=== PATIENT | female | born 1990 | race African-American/Black ===

== ENCOUNTER 2016-09-15 14:19 | Emergency (ER) | payer OTHER ==
[~2016-09-15] VITALS: Ht 170.2 cm; Wt 74.8 kg
[~2016-09-15 14:19] MED LIST: ACETAMINOPHEN650 M5 PO; AUGMENTIN 875875 MG PO; AZITHROMYCIN 2250 MG PO; CEFTIN 250 MG250 MG PO; CIPROFLOXACIN500 M1 PO; COLACE 100 MG100 MG PO; DIPHENHYDRAMINE25 M3 PO; DROXIA200 MG PO; FOLIC ACID 1 MG1 MG PO; FOLIC ACID1 MG PO; HYDREA 500 MG500 M1 PO; IBUPROFEN 600600 M1 PO; LAXATIVE PEG 3317 GM PO; LEVAQUIN 500 M500 M2 PO; MS CONTIN 30 MG30 M1 PO; MS CONTIN15 MG; MS CONTIN15 MG PO; MULTIVITAMINS1 EAC7; ONDANSETRON HCL4 M2 PO; OXYCODONE HCL15 MG PO; OXYCONTIN20 M1 PO; PERCOCET 10-321 EAC1 PO; PERCOCET 10-321 EACH PO; PERCOCET 10-651 EACH PO; PERCOCET 5-3251 EACH PO; PHENERGAN 25 MG25 M1 PO; PHENERGAN 25 MG25 MG PO; PHENERGAN50 MG RC; STOOL SOFTENER100 MG PO; TYLENOL325 MG PO; ZOFRAN ODT4 MG PO
[2016-09-15] MEDS ORDERED: PERCOCET 10-321 EACH PO (14:32)
== END 2016-09-15 15:05 | disposition home or self-care (01) ==
LOC: ER 14:19
DX: Z76.0 Encounter for issue of repeat prescription (principal)

== ENCOUNTER 2016-12-05 20:15 | Emergency (ER) | payer OTHER ==
[~2016-12-05] VITALS: Ht 170.2 cm; Wt 74.8 kg
[2016-12-05 20:42] LABS: HEMOGLOBIN 8.9 gm/dL (12.0-15.0); MCH 33.9 pg (26.0-34.0); MCHC 34.3 g/dL (28.0-37.0); PLATELET COUNT 490 thou/uL (150-400); RBC 2.62 mil/uL (4.20-5.00); RDW 20.4 % (10.5-14.5); WBC 10.1 thou/uL (4.0-11.0)
[2016-12-05 20:43] LABS: MANUAL DIFF YES
[2016-12-05 20:50] LABS: CREATININE 0.7 mg/dL (0.6-1.3); POTASSIUM 3.9 mmol/L (3.5-5.1)
[2016-12-05 20:54] LABS: ALBUMIN 4.3 g/dL (3.4-5.0); TOTAL BILIRUBIN 1.4 mg/dL (<0.1-1.0); TOTAL PROTEIN 7.3 g/dL (6.4-8.2)
[2016-12-05 21:13] LABS: ABSOLUTE NEUTROPHILS 6.3 thou/uL (1.4-8.2)
[2016-12-05 21:15] LABS: POIKILOCYTOSIS 1+; TARGET CELLS FEW
[2016-12-05] MEDS ORDERED: PERCOCET 5-3251 EACH PO (21:22)
== END 2016-12-05 22:16 | disposition home or self-care (01) ==
LOC: ER 20:15
PROVIDERS: Physician Assistant
DX: D57.00 Hb-SS disease with crisis, unspecified (principal)

== ENCOUNTER 2017-03-04 17:05 | Emergency (ER) | payer OTHER ==
[~2017-03-04] VITALS: Ht 170.2 cm; Wt 73.5 kg
[2017-03-04 17:28] LABS: URINE BILIRUBIN NEGATIVE (Negative); URINE BLOOD TRACE (Negative); URINE COLOR YELLOW; URINE GLUCOSE-RANDOM* NEGATIVE (Negative); URINE KETONES NEGATIVE (Negative); URINE NITRITE NEGATIVE (Negative); URINE PROTEIN (DIPSTICK) TRACE (Negative); URINE UROBILINOGEN 0.2 E.U./dl (0.2-1.0)
[2017-03-04 18:32] LABS: ABSOLUTE NEUTROPHILS 7.8 thou/uL (1.4-8.2); BASOPHILS 0.7 % (0.0-2.0); EOSINOPHILS 0.5 % (0.0-3.0); HEMATOCRIT 28.5 % (37.0-47.0); LYMPHOCYTES 20.7 % (24.0-44.0); MCH 35.6 pg (26.0-34.0); MCHC 35.2 g/dL (28.0-37.0); MCV 101.3 fL (80.0-100.0); MONOCYTES 11.4 % (1.0-8.0); PLATELET COUNT 540 thou/uL (150-400); POLYS 66.7 % (36.0-66.0); RBC 2.82 mil/uL (4.20-5.00); RDW 16.8 % (10.5-14.5); WBC 11.8 thou/uL (4.0-11.0)
[2017-03-04 18:33] LABS: CALCIUM 8.8 mg/dL (8.5-10.1); CREATININE 0.6 mg/dL (0.6-1.0); MANUAL DIFF NO; POTASSIUM 3.6 mmol/L (3.5-5.1)
[2017-03-04 18:35] LABS: ABSOLUTE RETIC COUNT 0.2909 10^6/uL; OBSERVED RETIC COUNT 10.29 % (0.6-2.6)
[2017-03-04 18:38] LABS: ALBUMIN 4.6 g/dL (3.4-5.0); TOTAL BILIRUBIN 1.3 mg/dL (<0.1-1.0)
[2017-03-04] MEDS ORDERED: PERCOCET 5-3251 EACH PO (19:49)
== END 2017-03-04 19:50 | disposition home or self-care (01) ==
LOC: ER 17:05
PROVIDERS: Physician Assistant
DX: D57.00 Hb-SS disease with crisis, unspecified (principal); F12.10 Cannabis abuse, uncomplicated

== ENCOUNTER 2017-11-05 03:58 | Emergency (ER) | payer OTHER ==
[~2017-11-05] VITALS: Ht 170.2 cm; Wt 68.0 kg
[2017-11-05 05:51] LABS: ABSOLUTE NEUTROPHILS 6.3 thou/uL (1.4-8.2); BASOPHILS 0.7 % (0.0-2.0); EOSINOPHILS 1.1 % (0.0-3.0); HEMOGLOBIN 7.9 gm/dL (12.0-15.0); LYMPHOCYTES 36.1 % (24.0-44.0); MCH 35.8 pg (26.0-34.0); MCHC 34.3 g/dL (28.0-37.0); MCV 104.4 fL (80.0-100.0); MONOCYTES 11.6 % (1.0-8.0); PLATELET COUNT 735 thou/uL (150-400); POLYS 50.5 % (36.0-66.0); RDW 19.8 % (10.5-14.5); WBC 12.5 thou/uL (4.0-11.0)
[2017-11-05 06:02] LABS: CALCIUM 9.2 mg/dL (8.5-10.1); CREATININE 0.7 mg/dL (0.6-1.0); POTASSIUM 3.2 mmol/L (3.5-5.1)
[2017-11-05 07:48] VITALS: BP 117/64
== END 2017-11-05 07:33 | disposition home or self-care (01) ==
LOC: ER 03:58
PROVIDERS: Emergency Medicine
DX: D57.00 Hb-SS disease with crisis, unspecified (principal); E87.6 Hypokalemia

== ENCOUNTER 2019-03-01 02:03 | Emergency (ER) | payer OTHER ==
[~2019-03-01] VITALS: Ht 170.2 cm; Wt 77.1 kg
[2019-03-01 03:05] LABS: URINE BILIRUBIN NEGATIVE (Negative); URINE BLOOD TRACE (Negative); URINE CLARITY CLEAR; URINE COLOR YELLOW; URINE GLUCOSE-RANDOM* NEGATIVE (Negative); URINE KETONES NEGATIVE (Negative); URINE LEUKOCYTES-REFLEX NEGATIVE (Negative); URINE NITRITE-REFLEX NEGATIVE (Negative); URINE PROTEIN (DIPSTICK) TRACE (Negative); URINE SPECIFIC GRAVITY 1.015 (1.005-1.035); URINE UROBILINOGEN 0.2 E.U./dl (0.2-1.0)
[2019-03-01] MEDS ORDERED: PROMS25 WY RECTAL (03:47)
[2019-03-01 04:19] VITALS: BP 108/72
== END 2019-03-01 04:20 | disposition home or self-care (01) ==
LOC: ER 02:03
PROVIDERS: Emergency Medicine
DX: D57.00 Hb-SS disease with crisis, unspecified (principal)

== ENCOUNTER 2019-03-27 18:41 | Inpatient (IN) | payer OTHER ==
[~2019-03-27] VITALS: Ht 170.2 cm; Wt 84.2 kg
[~2019-03-27 18:41] MED LIST changes: +ALPRAZOLAM 0.50.5 M1 PO; +CLEOCIN HCL150 MG PO; +CYMBALTA30 MG PO; +MS CONTIN 60 MG60 M1 PO; +OXYCODONE HCL30 MG PO; +PROMS25 WY RECTAL; +TRAZODONE HCL50 MG PO
[2019-03-27 18:56] VITALS: BP 145/81
[2019-03-27 21:30] LABS: HEMATOCRIT 25.8 % (37.0-47.0); HEMOGLOBIN 8.8 gm/dL (12.0-15.0); MCH 33.8 pg (26.0-34.0); MCHC 34.1 g/dL (28.0-37.0); MCV 99.2 fL (80.0-100.0); PLATELET COUNT 601 thou/uL (150-400); RDW 21.1 % (10.5-14.5); WBC 31.4 thou/uL (4.0-11.0)
[2019-03-27 21:34] LABS: ABSOLUTE RETIC COUNT 0.2538 10^6/uL; OBSERVED RETIC COUNT 9.71 % (0.6-2.6)
[2019-03-27 21:40] LABS: CALCIUM 8.6 mg/dL (8.5-10.1); CREATININE 0.6 mg/dL (0.6-1.0); POTASSIUM 3.9 mmol/L (3.5-5.1)
[2019-03-27 21:45] LABS: ALBUMIN 4.1 g/dL (3.4-5.0); TOTAL BILIRUBIN 0.9 mg/dL (<0.1-1.0); TOTAL PROTEIN 7.8 g/dL (6.4-8.2)
--- NOTE | 2019-03-27 21:46 | NUR ---
XRAY AT BEDSIDE
[2019-03-27 21:54] LABS: METAMYELOCYTES 1 %
[2019-03-27 21:55] LABS: ANISOCYTOSIS 2+; POLYCHROMASIA SLIGHT; TARGET CELLS OCCASIONAL
--- NOTE | 2019-03-27 22:36 | NUR ---
PATIENT RESTING MORE COMFORTABLY. STATES THE SECOND DOSE OF PAIN MEDS DIDN'T HELP, HOWEVER, SHE IS ABLE TO SPEAK MORE CLEARLY AND APPEARS TO BE RESTING
[2019-03-27 23:49] VITALS: BP 105/71
[2019-03-28] VITALS (7 sets, daily range): BP systolic 92–182; BP diastolic 54–87
--- NOTE | 2019-03-28 00:03 | NUR ---
REPORT TO INPATIENT NURSEFALLON
--- NOTE | 2019-03-28 02:46 | NUR ---
PT ARRIVED FROM ER VIA CART WITH [employer] SALESMAN. PLACED IN ROOM 360. ADMISSION ASSESSMENTS COMPLETED. PT RATING PAIN "35" OUT OF TEN. PT STATED HER BACK, CHEST AND RIGHT LEG WERE THE SITES FOR PAIN. USING FACES PAIN SCALE, THIS RN RATED PAIN AT 5/10. PT ALSO FREQUENTLY FALLING ASLEEP DURING ADMISSION QUESTTIONS. UPON APPROACH TO GIVE LOVENOX DOSE PT REFUSED. "NO, I'VE READ UP ON LOVENOX. MAYBE IF I WAS HERE FOR A WEEK I'D TAKE IT. I JUST NEED SOME PAIN MEDICATION." DID INFORM PROVIDER OF PTS REFUSAL TO TAKE LOVENOX. PT ALSO HAD PREVIOUSLY REFUSED SCDS. EDUCATION WAS ATTEMPTED IN REGARDS TO THE LOVENOX AND SCD BUT PT STILL REFUSED BOTH. CONTINUE TO MONITOR.
[2019-03-28 05:30] LABS: HEMATOCRIT 22.4 % (37.0-47.0); HEMOGLOBIN 7.5 gm/dL (12.0-15.0); MCH 33.1 pg (26.0-34.0); MCHC 33.6 g/dL (28.0-37.0); MCV 98.5 fL (80.0-100.0); RBC 2.27 mil/uL (4.20-5.00); RDW 20.5 % (10.5-14.5); WBC 21.4 thou/uL (4.0-11.0)
[2019-03-28 16:11] LABS: ABSOLUTE RETIC COUNT 0.2149 10^6/uL; HEMATOCRIT 24.2 % (37.0-47.0); HEMOGLOBIN 8.3 gm/dL (12.0-15.0); MCHC 34.4 g/dL (28.0-37.0); OBSERVED RETIC COUNT 8.78 % (0.6-2.6); RBC 2.45 mil/uL (4.20-5.00); RDW 20.3 % (10.5-14.5); WBC 19.5 thou/uL (4.0-11.0)
--- NOTE | 2019-03-28 19:33 | NUR ---
care of pt assumed this am @ ~0700. pt noted to be resting quietly and comfortably when viewed from the door, but once entered the room and pt heard the staff make noise she would awake and co of severe 10/10 generalized pain and request pain medication. pt often would ask for pain medication before the rn was able to given it, such that medications and times given were placed on her white board so that she and her mother could keep track. pt noted to be non compliant w/ tx requested/ offered (refused vs to be take twice today, pt refused to take her lovenox sq injection and pt refused to eat her meals today). pt shown the white board w/ the pain scale faces/numbers and informed that a 10 is a crying face and she always claimed her pain to be a 10/10 and stated that she never received any pain relief from all pain medications given today. pt's mother stated that the pt has also been seen at for similar health problems.
--- NOTE | 2019-03-28 22:02 | NUR ---
APPROACHED PT FOR INITIAL ASSESSMENT. UPON STANDING IN THE DOORWAY PT WAS PHYSICALLY STILL AND QUIET. THIS RN APPROACHED THE PT BEGAN TO SHAKE/SHIVER. PT STATED SHE WAS INTIALLY CALM AND STILL, WAS NOT CRYING OR STUTTERING BECAUSE SHE WAS "PRAYING." PTS SPEECH WAS VERY BROKEN, WITH SO MUCH STUTTERING THAT HE COULDN'T EVEN SPEAK A FULL WORD. PT BECAME TEARFUL. DID PERFORM ASSESSMENT, LISTENED TO POSTERIOR LUNG SITES AND PT EVEN 'MOANED' WITH EVEN VERY LIGHT TOUCH OF THE STETHESCOPE TO HER BACK. DIALUDID 2MG IV GIVEN. DID WRITE TIME OF NEXT DOSE OF DILAUDID ON THE PTS INFORMATION BOARD. ENCOURAGED TO CALL AT THAT TIME. ALSO INFORMED PT THAT THIS RN WOULD MAKE VERY ATTEMPT TO SHOW UP AT THAT TIME TO ASSESS THE NEED FOR THE NEXT DOSE IF NEEDED. ALSO DID INFORM PT THAT SHE WOULD NOT BE AWAKENED AND ASKED IF SHE NEEDS PAIN MEDICATION. PT WAS ALSO ASKED TO PLEASE MAKE ATTEMPT TO ANSWER ANY QUESTIONS BEST SHE CAN SO A MORE EVERETT ASSESSMENT OF HER STATUS CAN BE OBTAINED.
[2019-03-29 00:05] VITALS: BP 132/69
[2019-03-29 05:10] VITALS: BP 132/71
[2019-03-29 06:02] LABS: ABSOLUTE RETIC COUNT 0.1887 10^6/uL; HEMATOCRIT 23.1 % (37.0-47.0); HEMOGLOBIN 7.6 gm/dL (12.0-15.0); MCH 32.7 pg (26.0-34.0); MCHC 32.9 g/dL (28.0-37.0); MCV 99.4 fL (80.0-100.0); OBSERVED RETIC COUNT 8.11 % (0.6-2.6); PLATELET COUNT 493 thou/uL (150-400); RBC 2.33 mil/uL (4.20-5.00); RDW 19.4 % (10.5-14.5); WBC 21.7 thou/uL (4.0-11.0)
[2019-03-29 06:15] LABS: APTT 34.7 Seconds (24.5-32.8); INR 1.3; PROTIME 13.8 Seconds (9.3-11.4)
[2019-03-29 06:23] LABS: ALBUMIN 3.3 g/dL (3.4-5.0); ANION GAP 11 mmol/L (7-16); BUN 4 mg/dL (7-18); CALCIUM 8.4 mg/dL (8.5-10.1); CHLORIDE 103 mmol/L (98-107); CO2 22 mmol/L (21-32); CREATININE 0.5 mg/dL (0.6-1.0); GLUCOSE 112 mg/dL (74-106); MAGNESIUM 1.6 mg/dL (1.8-2.4); POTASSIUM 3.6 mmol/L (3.5-5.1); SGOT 26 U/L (15-37); SGPT 17 U/L (30-65); SODIUM 136 mmol/L (136-145); TOTAL BILIRUBIN 1.7 mg/dL (<0.1-1.0); TOTAL PROTEIN 6.5 g/dL (6.4-8.2); TROPONIN-I <0.06 ng/mL (<0.06)
[2019-03-29 07:20] VITALS: BP 126/78
[2019-03-29 08:18] LABS: ABSOLUTE NEUTROPHILS 14.5 thou/uL (1.4-8.2); ANISOCYTOSIS 2+; METAMYELOCYTES 2 %; NUCLEATED RBCS 3 /100WBC
[2019-03-29 08:20] LABS: POLYCHROMASIA SLIGHT
[2019-03-29 11:14] VITALS: BP 136/88
--- NOTE | 2019-03-29 12:23 | NUR ---
PT'S assessment has done, pt is A&O X3, PT is continuing pain management and IV NS @125ml/hr, pt's vs are stable at this time, pt's pain can control by iv and po medications, pt's has slowing meet the care plan gaols.
--- NOTE | 2019-03-29 15:12 | NUR ---
ASSUMED PT CARE AT 1300.PT IN BED SLEEPING ON AND OFF.ASSESSMENT COMPLETED.PT RATED GENERALIZED BODY ACHE 10/10.PT ON DILAUDID AND OXY BUT NOT DUE FOR PAIN MED UNTILL 1445. AT 1500, ONE DOSE OF DILAUDID GIVEN ORDERED.ICE WATER AND LEMON DRINK GIVEN PER PT REQUEST.DR MARIE HERE,ORDER NOTED.WILL CONTINUE TO MONITOR.
[2019-03-29 19:33] VITALS: BP 123/76
[2019-03-30 03:34] VITALS: BP 137/89
--- NOTE | 2019-03-30 05:00 | NUR ---
PT MAKING NO PROGRESS TOWARDS GOALS. REPEATEDLY STATES HER PAIN IN HER BACK AND CHEST IS 10/10. DENIES ANY RELIEF, NOT EVEN DOWN TO 9.9/10. DILAUDID IV PER ORDERS.
[2019-03-30 05:36] LABS: HEMATOCRIT 21.3 % (37.0-47.0); HEMOGLOBIN 7.3 gm/dL (12.0-15.0); MCH 33.4 pg (26.0-34.0); MCV 98.2 fL (80.0-100.0); RBC 2.17 mil/uL (4.20-5.00); RDW 18.9 % (10.5-14.5); WBC 27.2 thou/uL (4.0-11.0)
[2019-03-30 05:54] LABS: ABSOLUTE RETIC COUNT 0.1809 10^6/uL; ALBUMIN 2.9 g/dL (3.4-5.0); CALCIUM 8.4 mg/dL (8.5-10.1); CREATININE 0.5 mg/dL (0.6-1.0); OBSERVED RETIC COUNT 8.17 % (0.6-2.6); POTASSIUM 3.3 mmol/L (3.5-5.1); TOTAL BILIRUBIN 1.9 mg/dL (<0.1-1.0); TOTAL PROTEIN 6.9 g/dL (6.4-8.2)
[2019-03-30 07:23] VITALS: BP 118/75
[2019-03-30 11:28] VITALS: BP 112/67
--- NOTE | 2019-03-30 11:48 | NUR ---
Chart reviewed and case discussed with the care team. She is normally independent with gait and adl's. She lives with family and her 6yr old dtr. She is on SS disability and [place] insurance coverage for f/u care and scripts. Pt REPORTS SEEING A PHYSICIAN IN [place] WHO IS TIED TO FOR HER PAIN. She is struggling with pain mngt issues r/t her sickle cell. No cm interventions at this time. Dc timeframe is uncertain. Will continue to follow along should dc planning needs arise. PT SHOULD HAVE NO NEEDS AT DISCHARGE.
[2019-03-30 16:16] VITALS: BP 122/76
--- NOTE | 2019-03-30 18:05 | NUR ---
PATIENT EXPRESSED PAIN WITH LITTLE RELIEF, NURSE PAGED PHYSICIAN AND ORDERS ENTERED FOR NO ADDITIONAL PAIN MEDICATION TO BE GIVEN. PATIENT CALLED OUT EXPRESSING CHEST PAIN THIS EVENING. NURSE PAGED PHYSICIAN, WAITING RETURN CALL BACK. PATIENT ALSO REFUSED HER CHEST XRAY EXPRESSING SHE WAS HURTING TOO BAD. THIS WAS INFORMED TO PHYSICIAN. NURSE EXPRESSED THAT A URINE SAMPLE WAS NEEDED, PATIENT EXPRESSED SHE COULD NOT MOVE TO DO ANY OF IT. NURSE TO CONTINUE TO MONITOR PATIENT STATUS.
[2019-03-30 18:08] VITALS: BP 126/71
--- NOTE | 2019-03-30 20:13 | NUR ---
NURSE HAD PAGED PHYSICIAN AGAIN, NOTING PAIN AND CHEST PAIN. PATIENT EXPRESSED SHE TAKES SCHEDULED PAIN MEDICATION AT HOME WITH XANAX AND IT HELPS. SHE EXPRESSED HER PAIN IS NEVER LESS THAN A 5 AT HOME. SHE WAS TEARFUL. VITAL SIGNS OBTAINED AND ARE NOTED. PHYSICIAN ENTERED MEDICATIONS. REPORT GIVEN FOR RIPRAP WORKER RN FOR CONTINUATION OF CARE.
[2019-03-30 21:13] LABS: URINE BILIRUBIN NEGATIVE (Negative); URINE BLOOD TRACE (Negative); URINE CLARITY CLEAR; URINE COLOR YELLOW; URINE GLUCOSE-RANDOM* NEGATIVE (Negative); URINE KETONES 2+ (Negative); URINE LEUKOCYTES-REFLEX NEGATIVE (Negative); URINE NITRITE-REFLEX NEGATIVE (Negative); URINE PROTEIN (DIPSTICK) 1+ (Negative); URINE UROBILINOGEN 0.2 E.U./dl (0.2-1.0)
[2019-03-30 21:28] LABS: CASTS None Seen /LPF (None Seen); MUCUS None Seen strn/LPF (None Seen); SQUAMOUS 0-3 Few /LPF (0-3)
[2019-03-30 21:29] LABS: BACTERIA-REFLEX 1-9 Few /HPF (None Seen); CRYSTALS None Seen /LPF (None Seen); URINE RBC None Seen /HPF (0-2); URINE WBC-REFLEX 0-5 Rare /HPF (0-5)
[2019-03-31] VITALS (7 sets, daily range): BP systolic 114–125; BP diastolic 59–78
[2019-03-31 05:12] LABS: ABSOLUTE RETIC COUNT 0.1468 10^6/uL; OBSERVED RETIC COUNT 7.33 % (0.6-2.6)
--- NOTE | 2019-03-31 05:31 | NUR ---
ASSUMED CARE OF PATIENT AT 1900. PATIENT REPORTS BEING VERY FRUSTRATED THAT PAIN IS NOT BEING MANAGED. LENGTHY DISCUSSION ABOUT PAIN MANAGEMENT. ENCOURAGED PATIENT TO GET UP TO CHAIR DURING THE DAY. WORKING TOWARDS POC GOALS.
[2019-03-31 05:33] LABS: ALBUMIN 2.7 g/dL (3.4-5.0); CALCIUM 8.4 mg/dL (8.5-10.1); CREATININE 0.5 mg/dL (0.6-1.0); POTASSIUM 3.4 mmol/L (3.5-5.1); TOTAL PROTEIN 6.7 g/dL (6.4-8.2)
[2019-03-31 05:40] LABS: MCH 31.9 pg (26.0-34.0); MCHC 32.5 g/dL (28.0-37.0); MCV 98.1 fL (80.0-100.0); WBC 23.1 thou/uL (4.0-11.0)
[2019-03-31 05:44] LABS: HEMOGLOBIN 6.4 gm/dL (12.0-15.0)
[2019-03-31 05:45] LABS: HEMATOCRIT 19.7 % (37.0-47.0)
--- NOTE | 2019-03-31 20:45 | NUR ---
PATIENT ALERT AND ORIENTED X4, PAIN MILDLY CONTROLLED WITH MEDICATION. SINUS TACYCARDIA ON DROP SHIPMENT CLERK. ON 2L NASAL CANNULA. TOLERATING DIET. UP WITH STANDBY ASSISTANCE TO BEDSIDE COMMODE. PATIENT BROUGHT TO CT SCAN. PATIENT REFUSES SCD. SPOKE WITH DR. MENDIOLA AT BEDSIDE WITH PATIENT ABOUT THE PLAN OF CARE, PATIENT VERBALIZED UNDERSTANDING. NO SIGNS OF ACUTE DISTRESS NOTED AT THIS TIME. WILL CONTINUE TO MONITOR.
[2019-04-01] VITALS (8 sets, daily range): BP systolic 106–137; BP diastolic 55–80
[2019-04-01 01:31] LABS: HEMOGLOBIN 7.3 gm/dL (12.0-15.0); WBC 18.1 thou/uL (4.0-11.0)
[2019-04-01 01:33] LABS: HEMATOCRIT 21.4 % (37.0-47.0); MCH 32.7 pg (26.0-34.0); MCV 96.1 fL (80.0-100.0); PLATELET COUNT 426 thou/uL (150-400); RBC 2.22 mil/uL (4.20-5.00); RDW 21.2 % (10.5-14.5)
[2019-04-01 01:50] LABS: ABSOLUTE RETIC COUNT 0.1792 10^6/uL; OBSERVED RETIC COUNT 7.89 % (0.6-2.6)
[2019-04-01 02:33] LABS: ANION GAP 11 mmol/L (7-16); BUN 10 mg/dL (7-18); CALCIUM 8.9 mg/dL (8.5-10.1); CHLORIDE 101 mmol/L (98-107); CO2 24 mmol/L (21-32); CREATININE 0.9 mg/dL (0.6-1.0); GLUCOSE 84 mg/dL (74-106); POTASSIUM 3.2 mmol/L (3.5-5.1); SODIUM 136 mmol/L (136-145); TROPONIN-I <0.06 ng/mL (<0.06)
[2019-04-01 02:44] LABS: ABSOLUTE NEUTROPHILS 13.8 thou/uL (1.4-8.2); ANISOCYTOSIS 2+; NUCLEATED RBCS 1 /100WBC; POLYCHROMASIA 1+
[2019-04-01 02:45] LABS: OVALOCYTES FEW; SCHISTOCYTES OCCASIONAL; TARGET CELLS 1+
[2019-04-01 07:26] LABS: HEMOGLOBIN 8.2 gm/dL (12.0-15.0); MCH 31.5 pg (26.0-34.0)
[2019-04-01 07:28] LABS: HEMATOCRIT 24.3 % (37.0-47.0); MCHC 33.7 g/dL (28.0-37.0); MCV 93.4 fL (80.0-100.0); RBC 2.6 mil/uL (4.20-5.00); RDW 21.3 % (10.5-14.5); WBC 17.9 thou/uL (4.0-11.0)
--- NOTE | 2019-04-01 07:34 | NUR ---
SLEPT ON AND OFF MOST OF SHIFT. COMPLAINTS OF PAIN FREQUENTLY OF 7-10. UP WITH STANDBY ASSIST DUE TO NARCOTICS AND PAIN. WORKING ON GOALS AND PLAN OF CARE FOR NOC. NOT PROGRESSING TOWARDS DISCHARGE GOALS. RECIEVED 2 UNITS BLOOD TONIGHT. AWAITING NEXT HGB AND IF NOT >10 WILL RECIEVE 3RD UNIT. VSS. O2 SAT REMAINS 96% ON RA. CONTINUE TO ASSES CLOSELY. TO NOTIFY DR. MENDIOLA IF ANY CHANGES IN STATUS.
[2019-04-01 14:11] LABS: HEMATOCRIT 26.3 % (37.0-47.0); HEMOGLOBIN 9.1 gm/dL (12.0-15.0); MCH 31.5 pg (26.0-34.0)
[2019-04-01 14:12] LABS: MCHC 34.5 g/dL (28.0-37.0); MCV 91.4 fL (80.0-100.0); RBC 2.87 mil/uL (4.20-5.00); RDW 20.4 % (10.5-14.5); WBC 15.5 thou/uL (4.0-11.0)
[2019-04-01 14:26] LABS: ALBUMIN 2.7 g/dL (3.4-5.0); CALCIUM 8.5 mg/dL (8.5-10.1); CREATININE 0.5 mg/dL (0.6-1.0); POTASSIUM 2.9 mmol/L (3.5-5.1); TOTAL BILIRUBIN 1.1 mg/dL (<0.1-1.0); TOTAL PROTEIN 6.7 g/dL (6.4-8.2)
--- NOTE | 2019-04-01 16:04 | NUR ---
ASSUMED CARE OF PT AT 0700. PT ALERT AND ORIENTED X4 IN NO ACUTE DISTRESS. PAIN WELL CONTROLLED WITH CURRENT REGIMEN. TRANSFUSED THIRD UNIT OF PRBC. PT REPORTS FEELING MUCH IMPROVED TODAY. HGB NOW 9.1. MOTHER AT BEDSIDE. LAB RESULTS RELAYED TO DR MENDIOLA. VITALS STABLE. WILL CONT TO MONITOR. GOOD PROGRESS TOWARD POC GOALS.
--- NOTE | 2019-04-01 19:25 | NUR ---
VASCULA ACCESS CONSULTED FOR ML. PT'S LABS,MEDS,HISTORYREVIEWED. DISCUSSED BENEFITS AND RISK WITH PT,VERBALIZED UNDERSTANDING GAVE VERBAL CONSENT FOR MIDLINE. EMA BRACHIAL WAS WIDELY PATENT WITH USG,1% LIDOCAINE GIVEN SQ. 4FR POWER MIDLINE TRIMMED TO 16CM INSERTED TO 0CM PER POLICY. ML RELEASED FOR IMMEDIATE USE PER PROTOCOL TO RAFAELA REDDING.
[2019-04-02 04:59] VITALS: BP 107/69
[2019-04-02 07:07] LABS: HEMOGLOBIN 8.6 gm/dL (12.0-15.0)
[2019-04-02 07:09] LABS: MCH 31.8 pg (26.0-34.0); MCHC 34.5 g/dL (28.0-37.0); MCV 92.2 fL (80.0-100.0); PLATELET COUNT 441 thou/uL (150-400); RBC 2.71 mil/uL (4.20-5.00); RDW 20.6 % (10.5-14.5); WBC 12.4 thou/uL (4.0-11.0)
[2019-04-02 07:29] LABS: CALCIUM 8.3 mg/dL (8.5-10.1); CREATININE 0.5 mg/dL (0.6-1.0); MAGNESIUM 1.8 mg/dL (1.8-2.4)
[2019-04-02 07:31] LABS: ABSOLUTE RETIC COUNT 0.234 10^6/uL; OBSERVED RETIC COUNT 8.72 % (0.6-2.6); POTASSIUM 2.7 mmol/L (3.5-5.1)
[2019-04-02 07:32] VITALS: BP 120/71
--- NOTE | 2019-04-02 07:53 | NUR ---
SLEPT MOST OF SHIFT. UP WITH STANDBY ASSIST. STARTED MENSTRAL CYCLE YESTERDAY. STATES PAIN IS BETTER TODAY. REQUEST LESS PAIN MEDICATION THIS SHIFT. WORKING ON GOALS AND PLAN OF CARE FOR NOC. PROGRESSING SLOWLY TOWARDS DISCHARGE GOALS. SMILING AND LAUGHING WITH CONVERSATION THIS SHIFT. CONTINUE TO ASSESS CLOSELY.
[2019-04-02 08:22] LABS: ABSOLUTE NEUTROPHILS 8.6 thou/uL (1.4-8.2); ANISOCYTOSIS 2+; HYPOCHROMASIA 1+; LARGE PLATELETS RARE; MICROCYTES 1+; NUCLEATED RBCS 9 /100WBC; PLATELET ESTIMATE INCREASED; TARGET CELLS 1+
[2019-04-02 11:20] VITALS: BP 141/85
--- NOTE | 2019-04-02 12:26 | NUR ---
ON-GOING ASSESSMENT: PT IS SLOWLY PROGRESSING TOWARDS DISCHARGE GOALS. PT HD TRANSFUSION OVER THE WEEKEND. PT IS REFUSING ECHO TODAY. CM WILL CONTINUE TO FOLLOW TO ASSIST NEEDED. PT SHOULD HAVE NO NEEDS AT DISCHARGE.
[2019-04-02 14:27] LABS: MAGNESIUM 1.8 mg/dL (1.8-2.4); POTASSIUM 5.6 mmol/L (3.5-5.1)
[2019-04-02 15:39] VITALS: BP 113/72
[2019-04-02 20:05] VITALS: BP 113/67
--- NOTE | 2019-04-02 20:27 | NUR ---
Assumed care approx. 0700 this AM. The patient was given pain meds on schedule today with most pain scale ratings at a 10, and it would occassionally drop down to an 8 after dilaudid administration. The patient refused her Echo, chest x-ray and IV potassium this AM. Dr. Vidal notified of the situation. The patient was educated as to why the IV potassium is very important, that we want to prevent any arrhythimias, and that the oral potassium may not cut it since her level was 2.7 today. The patient later agreed to doing the scans after Dr. Vidal spoke with her and she agreed for IV potassium as long as it was ran at a slower rate with her maintenance fluids. Potassium rechecked today-- specimen most likely contaminated by IV potassium. New STAT order for potassium being drawn this evening. Patient wore 2LNC mainly with activity. Patient started to gradually consume more food today for the first time in a few days according to her. Fall precautions in place. Progressing toward plan of care goals.
[2019-04-03 04:16] VITALS: BP 107/73
[2019-04-03 07:22] VITALS: BP 106/65
[2019-04-03 11:22] VITALS: BP 111/67
--- NOTE | 2019-04-03 12:54 | NUR ---
ON-GOING ASSESSMENT: CM REVIEWED CHART AND SPOKE WITH ATTENDING. PT IS SLOWLY PROGRESSING TOWARDS DISCHARGE GOALS. PT IS HAVING LABS DRAWN AND MAY BE READY FOR DISCHARGE SOON. CM WILL CONTINUE TO FOLLOW TO ASSIST NEEDED.
--- NOTE | 2019-04-03 14:26 | NUR ---
Nutrition: pt admitted with recurrent sickle cell crisis. Seen due to LOS. UBW around 165#, stable for years. Current wt 185#, error, related to bedscale. Pt eating variable amounts from refuse to 100%. Overall inadequate intake which is typical per pt when she is in pain. Has outside food at bedside. Knows how to order meals. Agrees to offer of ensure BID to assist with nutrition til % meal intake more adequate. Enjoys boost often at home for breakfast in place of meal. Low nutrition risk.
[2019-04-03 15:45] VITALS: BP 110/71
[2019-04-03 19:36] VITALS: BP 128/80
--- NOTE | 2019-04-03 19:58 | NUR ---
Assumed care approx. 0700 this AM. The patient remains to struggle with pain management. Pain remained between 8-10 all day with all pain medications administered. IV Zofran given once for nausea. IV and oral antibiotics administered. PO potassium encouraged and taken by patient when scheduled. Patient anxious to be discharged tomorrow. Progressing toward goals besides pain management.
[2019-04-04 04:29] VITALS: BP 107/66
[2019-04-04 07:24] VITALS: BP 113/66
--- NOTE | 2019-04-04 07:50 | NUR ---
SLEPT MOST OF SHIFT. STATES FEELS SO MUCH BETTER AND READY TO GO HOME. UP AD KELSY IN ROOM WITHOUT COMPLAINTS. CALLED LESS FREQUENTLY FOR PAIN MEDICATION THIS SHIFT THAN PREVIOUS NOCS. WORKING ON GOALS AND PLAN OF CARE FOR NOC. PROGRESSING SLOWLY TOWARDS DISCHARGE GOALS. CONTINUE TO ASSES.
[2019-04-04 08:33] LABS: ABSOLUTE RETIC COUNT 0.3664 10^6/uL; HEMATOCRIT 27.6 % (37.0-47.0); HEMOGLOBIN 9.3 gm/dL (12.0-15.0); MCH 31.7 pg (26.0-34.0); MCHC 33.7 g/dL (28.0-37.0); MCV 93.9 fL (80.0-100.0); OBSERVED RETIC COUNT 12.44 % (0.6-2.6); RBC 2.94 mil/uL (4.20-5.00); RDW 22.9 % (10.5-14.5); WBC 8.9 thou/uL (4.0-11.0)
[2019-04-04 08:40] LABS: CREATININE 0.6 mg/dL (0.6-1.0); POTASSIUM 3.1 mmol/L (3.5-5.1)
[2019-04-04 11:48] VITALS: BP 113/66
[2019-04-04 12:09] VITALS: BP 113/66
--- NOTE | 2019-04-04 13:07 | NUR ---
Patient discharged and left by wheelchair with transporter at 1305 this afternoon. Patient's mother is here to pick her up. Midline and peripheral IV's taken out. Telemetry discontinued. Discharge packet and education administered. Medicare rights papers signed before discharge. Patient stated all personal belongings are with her.
[2019-04-04 13:09] VITALS: BP 113/66
--- NOTE | 2019-04-04 14:54 | NUR ---
PATIENT HAS ORDERS TO DISCHARGE HOME TODAY. PT HAD NO NEEDS FROM CM.
== END 2019-04-04 13:14 | disposition home or self-care (01) | DRG 811 ==
LOC: ER 18:41 → EROBS 23:24 → 3W 23:24 → ENTRNSPT 04-04 13:00 → EDTRNSPTSTS 04-04 13:01 → 3W 04-04 13:14
PROVIDERS: Emergency Medicine; Hospitalist; Internal Medicine Hematology & Oncology; Nurse Practitioner Acute Care; ADMIT Internal Medicine
DX: D57.01 Hb-SS disease with acute chest syndrome (principal); J18.9 Pneumonia, unspecified organism; E43 Unspecified severe protein-calorie malnutrition; J96.01 Acute respiratory failure with hypoxia; G89.4 Chronic pain syndrome; D72.829 Elevated white blood cell count, unspecified; F43.20 Adjustment disorder, unspecified; D62 Acute posthemorrhagic anemia; Z88.2 Allergy status to sulfonamides; Z88.8 Allergy status to other drugs, medicaments and biological substances; Z91.040 Latex allergy status; Z82.49 Family history of ischemic heart disease and other diseases of the circulatory system; Z80.9 Family history of malignant neoplasm, unspecified; Z83.2 Family history of diseases of the blood and blood-forming organs and certain disorders involving the immune mechanism; Z79.891 Long term (current) use of opiate analgesic; Z99.81 Dependence on supplemental oxygen; Z68.29 Body mass index [BMI] 29.0-29.9, adult; Z79.899 Other long term (current) drug therapy
CPT/HCPCS: 10879; 27000

== ENCOUNTER 2019-11-23 23:30 | Inpatient (IN) | payer OTHER ==
[~2019-11-23] VITALS: Ht 170.2 cm; Wt 75.7 kg
[2019-11-23 23:32] VITALS: BP 137/85
[2019-11-24 00:28] LABS: CALCIUM 8.7 mg/dL (8.5-10.1); CREATININE 0.7 mg/dL (0.6-1.0); POTASSIUM 3.6 mmol/L (3.5-5.1)
[2019-11-24 00:30] LABS: ABSOLUTE RETIC COUNT 0.1513 10^6/uL; HEMOGLOBIN 9.2 gm/dL (12.0-15.0); MCH 33.3 pg (26.0-34.0); MCV 100.8 fL (80.0-100.0); OBSERVED RETIC COUNT 5.45 % (0.6-2.6); PLATELET COUNT 479 thou/uL (150-400); RBC 2.78 mil/uL (4.20-5.00); RDW 20.1 % (10.5-14.5); WBC 23.2 thou/uL (4.0-11.0)
[2019-11-24 00:36] LABS: ALBUMIN 4.3 g/dL (3.4-5.0); TOTAL BILIRUBIN 1.2 mg/dL (<0.1-1.0); TOTAL PROTEIN 8.1 g/dL (6.4-8.2)
[2019-11-24 01:28] LABS: ANISOCYTOSIS 2+; LARGE PLATELETS OCCASIONAL; NUCLEATED RBCS 3 /100WBC
[2019-11-24 01:29] LABS: POLYCHROMASIA 1+; SCHISTOCYTES OCCASIONAL
[2019-11-24 01:30] LABS: POIKILOCYTOSIS 1+; TARGET CELLS FEW
[2019-11-24 01:48] VITALS: BP 100/62
[2019-11-24 01:59] VITALS: BP 102/58
[2019-11-24 03:00] VITALS: BP 122/67
--- NOTE | 2019-11-24 04:22 | NUR ---
PT ARRIVED FROM THE ER THIS MORNING VIA CART. A&OX4 WITH C/O OF PAIN IN LFT LEG DUE TO SS CRISIS. IV INTACT AND FLUIDS STARTED. PAIN MEDS GIVEN FOR PAIN OF 06/14. CALLED ONCALL FOR PAIN MEDS DUE TO NO RELIEF FROM OXYCODONE. DILUADID GIVEN. ADMISSION DONE AND PT ORIENTED TO THE UNIT. LATEX ALLERRGY SIGN ON THE DOOR. CALL LIGHT IN REACH AND WILL CONT WITH POC TILL EOS.
[2019-11-24 07:56] VITALS: BP 112/62
[2019-11-24 16:03] VITALS: BP 119/65
[2019-11-24 19:25] VITALS: BP 121/68
--- NOTE | 2019-11-24 20:55 | NUR ---
PATIENT ALERT AND ORIENTED IN ABLE TO MANAGE PAIN WELL WITH CURRENT PAIN ORDERS. PATIENT HAS POOR PO INTACT AND USING BEDSIDE COMMODE AND IV CONTINUOUS FLUIDS AND HEATING PAD TO LEG. CONTINUE TO MONITOR. PATIENT ON O2 2LPM NC AND CONTINUOUS PULSE OXIMETER.
--- NOTE | 2019-11-25 01:58 | NUR ---
ASSESSED AT START OF SHIFT PT A&OX4 WITH C/O OF PAIN. MEDS GIVEN SEE EMAR. ZOFRAN GIVEN FOR NAUSEA NO EMESIS. IV INTACT AND FLUIDS INFUISING. PT ON CONTINOUS PULSE OX. HEATING PAD ON RT LEG FOR PAIN MANAGEMENT. CALL LIGHT IN PLACE AND WILL CONT WITH POC.
[2019-11-25 04:15] VITALS: BP 125/67
[2019-11-25 07:17] LABS: ABSOLUTE NEUTROPHILS 8.5 thou/uL (1.4-8.2); BASOPHILS 0.4 % (0.0-2.0); EOSINOPHILS 0.7 % (0.0-3.0); HEMATOCRIT 26.9 % (37.0-47.0); HEMOGLOBIN 8.8 gm/dL (12.0-15.0); LYMPHOCYTES 20.4 % (24.0-44.0); MCHC 32.8 g/dL (28.0-37.0); MCV 103.6 fL (80.0-100.0); MONOCYTES 10.2 % (1.0-8.0); POLYS 68.3 % (36.0-66.0); WBC 12.4 thou/uL (4.0-11.0)
[2019-11-25 07:28] LABS: PLATELET COUNT 366 thou/uL (150-400)
[2019-11-25 07:35] LABS: CALCIUM 8.9 mg/dL (8.5-10.1); CREATININE 0.6 mg/dL (0.6-1.0); MAGNESIUM 1.7 mg/dL (1.8-2.4); POTASSIUM 3.4 mmol/L (3.5-5.1)
[2019-11-25 07:40] LABS: ALBUMIN 3.5 g/dL (3.4-5.0); DIRECT BILIRUBIN 0.3 mg/dL (<0.1-0.2); TOTAL BILIRUBIN 1.3 mg/dL (<0.1-1.0); TOTAL PROTEIN 6.4 g/dL (6.4-8.2)
--- NOTE | 2019-11-25 07:56 | HC ---
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 HISTORY OF PRESENT ILLNESS: The patient is a very pleasant 29-year-old female who I have seen in the past. She usually follows by Dr. Charles Rasheed who is one of my partners at the [facility] office. She reports onset shortly before admit of left leg pain that was fairly severe. Denies any trauma. This is not her usual sickle pain. She denies any unusual headache, shortness of air, fevers, diarrhea, mouth sores, sore throat, dysuria, blood in her urine or stool, bug bites or trauma or change in medications. At home, she has been receiving MS Contin 60 q. 12 hours and oxycodone 30 mg usually 3 or 4 per day. Here, she has also been receiving 0.5 Dilaudid for breakthrough on a p.r.n. basis. This was since last night. Her pain is still quite bothersome to her that probably at a level of 6 or 8. PAST MEDICAL HISTORY: Notable for the history of sickle cell disease. Note that she in the past had had difficulties with sickle cell crisis about the time of her period or menstrual cycle. She underwent a hysterectomy with leaving her ovaries intact, I believe she said end of August 2019. She is not sure if this has helped much or not. She has been on Hydrea and folic acid. She has not yet begun Endari or L-glutamine because of cost considerations, her insurance recently kicked back in. 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 Also, has a history of cholelithiasis in the past. Also, . Also, history of acute chest syndrome. PAST SURGICAL HISTORY: She has also had a tubal ligation prior to the hysterectomy and another recent hysterectomy. FAMILY HISTORY: Mother, maternal aunts all had breast cancer in 50s. The patient is already undergoing breast cancer screening. SOCIAL HISTORY: She lives with a cousin. Daughter is 11 years old and in [address] [place] [address] CONSULTATION Name: SONYAESTEFANIA Room #: 440-P ADM IN M.R.#: [id number] Admission: 11/24/19 Attend Phys: Judah Muniz MD Discharge: Date of : 89 Report #: [id number] grade, lives down in [place]. LABORATORY REVIEW: Recently on this admit include electrolytes fairly normal. Note that her total bilirubin is slightly elevated at 1.2. Her baseline appears to be when she is doing well around 0.9. She has been as high as 2.4 with crisis in the past. Transaminases are normal. LDH is slightly elevated at 361. She has been as high as 530 in the distant past. Normally, her LDH is around 184 to low 200s at the time of crisis cessation. White count recently 23.2. Usually, she runs 8-11, has been this high before back last summer. It has actually been up to 27. Hemoglobin is recently at 9.2. Usually, she runs in the 7.9-8.6 range. MCV is slightly higher than usual in the past, in summer had been around 96. On admission, it was 100.8. This might be consistent with reticulocytosis. Note that RDW is elevated, normal range for her 20.1, which is where she is. Platelet count is 479. She usually runs in the mid 400s to low 500s. Differential does not have acute forms such as metamyelocytes or myelocytes like I have been seen before. Absolute retic count is recently 0.1513. Note that this is a lower reticulocyte count in the past. In the past, she has been as low as 0.146 and more commonly runs in the mid to 0.24-0.26 range. IMAGING: This admit included a chest x-ray, which is unremarkable. MEDICATIONS: At this time in the hospital currently include hydromorphone p.r.n. that I added, which is 2 for mild pain, 3 for moderate and 4 q.4 for more severe pain; docusate 1 tab b.i.d.; morphine controlled 60 b.i.d.; duloxetine 30 daily; hydroxyurea 1000 b.i.d.; folic acid 1 mg daily; pantoprazole 40 daily; oxycodone 30 mg q. 6 p.r.n.; Xanax 0.5 q. 8 hours p.r.n.; trazodone 50 at bedtime p.r.n.; Tylenol p.r.n.; MiraLax p.r.n.; Zofran p.r.n.; IV fluids currently at about 125, 110 an hour. PHYSICAL EXAMINATION: GENERAL: The patient appears her stated age, is in mild distress, though very pleasant. VITAL SIGNS: Height is 5 feet 7 inches, 172 cm. Weight is 167 pounds, which is 75.8 kilograms. Blood pressure recently at 112/62, O2 sat of 96%, respirations 13, pulse 99, afebrile at 98.7. MOOD: The patient is somewhat stressed because of pain and has some slight tears in her eyes, but is very pleasant and conversant. NEUROLOGIC: Speech and thought pattern are normal. She is moving all extremities, though she does not like to move her left leg is much because of pain. LYMPH NODES: None palpably enlarged in the supraclavicular, cervical, axillary region. BREASTS: Deferred. ABDOMEN: Slightly obese. No organomegaly. Not tender. EXTREMITIES: Without clubbing or cyanosis. Note that left calf specifically is [facility] [address] [place] [address] CONSULTATION Name: ESTEFANIA HASSAN Room #: 440-P [facility] IN .R.#: [id number] Admission: 11/24/19 Attend Phys: Judah Muniz MD Discharge: Date of : 89 Report #: [id number] not inflamed, red or swollen. No distention of veins. SKIN: Dry and intact without evidence of ecchymosis. ASSESSMENT AND PLAN: 1. Sickle cell crisis. Continue IV fluids. We will add oxygen. Continue folic acid. 2. Sickle pain. The patient probably needs higher breakthrough pain, giving morphine equivalent of daily use prior to this of approximately 240 mg daily. This suggests that she may need somewhere between 15 and 30 or 15 and 40 mg of morphine equivalent for breakthrough pain. We will increase Dilaudid to 2, 3, and 4 mg for mild, moderate and severe pain respectively. We will also use continuous O2 sat monitor for patient's safety. 3. Mood. Continue those medications. 4. Health maintenance. Continues stool softeners. We will be available and follow with you. 5. Anemia. Would not transfuse at this level currently. <ELECTRONICALLY SIGNED> By: Xander Ling MD 11/25/19 [id number] Xander Ling MD /nt
[2019-11-25 08:14] VITALS: BP 107/58
[2019-11-25 14:08] VITALS: BP 118/64
[2019-11-25 19:10] VITALS: BP 115/56
--- NOTE | 2019-11-25 19:51 | NUR ---
VSS-AFEBRILE. PLACED ON 2LNC DUE TO LOWER SAO2 WHILE SLEEPING. C/O PAIN THROUHOUT SHIFT, MEDICATED PER ORDERS. DR JC IN TO SEE PATIENT, AND ORDERED THAT PATIENT RECIEVE HER PAIN MEDICATIONS STAGGERED THROUGH DAY, TO STAY ON TOP OF PAIN. OOB AD KELSY TO USE RESTROOM/COMMODE, NO DIFFICULTY VOIDING. CALLS APPROPRIATELY FOR ANY NEEDED ASSISTANCE.
--- NOTE | 2019-11-26 03:32 | NUR ---
PT TRANSFERRING TO BEDSIDE COMMODE INDEPENDENTLY AND IS TOLERATING FAIR. DILAUDID AND OXY IR PROVIDING PAIN RELIEF. RESTING COMFORTABLY. NO NEEDS VOICED. CALL LIGHT WITHIN REACH. FREQUENT OBSERVATION.
[2019-11-26 04:40] VITALS: BP 100/53
[2019-11-26 05:50] LABS: ALBUMIN 3.2 g/dL (3.4-5.0); CALCIUM 8.6 mg/dL (8.5-10.1); CREATININE 0.5 mg/dL (0.6-1.0); TOTAL BILIRUBIN 1.2 mg/dL (<0.1-1.0); TOTAL PROTEIN 6.6 g/dL (6.4-8.2)
[2019-11-26 05:51] LABS: HEMATOCRIT 23.7 % (37.0-47.0); HEMOGLOBIN 7.9 gm/dL (12.0-15.0); MCHC 33.2 g/dL (28.0-37.0); MCV 102.4 fL (80.0-100.0); RBC 2.32 mil/uL (4.20-5.00); RDW 19.2 % (10.5-14.5); WBC 10.9 thou/uL (4.0-11.0)
[2019-11-26 08:25] VITALS: BP 102/50
[2019-11-26 17:00] VITALS: BP 99/57
[2019-11-26 19:15] VITALS: BP 110/58
--- NOTE | 2019-11-27 02:46 | NUR ---
ASSESSED AT START OF SHIFT PT A&OX4 WITH C/O PAIN. PAIN MEDS GIVEN THROUGH OUT SHIFT. XANAX AND TRAZADONE GIVEN THIS SHIFT. NEW IV INSERTED ON RT WRIST AND FLUIDS INFUISING. CALL LIGHT IN REACH AND FREQ ROUNDING DONE WILL CONT WITH POC TILL EOS.
[2019-11-27 04:00] VITALS: BP 106/52
[2019-11-27 07:42] VITALS: BP 96/56
[2019-11-27 09:05] LABS: HEMATOCRIT 22.1 % (37.0-47.0); HEMOGLOBIN 7.5 gm/dL (12.0-15.0); MCH 34.2 pg (26.0-34.0); MCHC 33.8 g/dL (28.0-37.0); MCV 101.2 fL (80.0-100.0); RBC 2.18 mil/uL (4.20-5.00); RDW 18.9 % (10.5-14.5); WBC 9.2 thou/uL (4.0-11.0)
[2019-11-27 09:13] LABS: CALCIUM 8.5 mg/dL (8.5-10.1); CREATININE 0.5 mg/dL (0.6-1.0); TOTAL PROTEIN 6.4 g/dL (6.4-8.2)
[2019-11-27 09:15] LABS: POTASSIUM 2.8 mmol/L (3.5-5.1)
[2019-11-27 17:25] VITALS: BP 113/49
[2019-11-27 18:31] VITALS: BP 118/86
[2019-11-27 19:25] VITALS: BP 108/61
--- NOTE | 2019-11-27 19:58 | NUR ---
VSS-AFEBRILE. LUNGS CLEAR-ROOM AIR TO 2LNC PRN. REPORTS THJAT PAIN IS SLOWLY IMPROVING. BEGAN WEANING OFF IV PAIN MEDICATION THIS SHIFT, TOLERATING WELL. OOB AD KELSY TO USE RESTROOM-STEADY ON FEET. CALLS APPROPRIATELY FOR ANY NEEDED ASSISTANCE.
[2019-11-28 02:00] VITALS: BP 131/72
--- NOTE | 2019-11-28 03:56 | NUR ---
ASSUMED PT CARE AT APPROX 1930.PT C/O PAIN,RATED IT AT 8/10,MANAGED WITH PO AND IV MED BUT PT RATED HER PAIN AT 8/10 THE WHOLE TIME.UP ADLIB IN THE ROOM.PT STILL AWAKE AT THIS TIME EATING IN HER ROOM.CALL LIGHT WITHIN REACH.
[2019-11-28 08:01] VITALS: BP 108/57
[2019-11-28 14:30] VITALS: BP 108/57
--- NOTE | 2019-11-28 14:55 | NUR ---
assumed care of pt at 0700. pt very upset about night nurse and lack of pain control in her perspective. asking to speak with charge nurse or someone in charge. saw pt this morning and was going to change her pain medication back to her home regimen with hopes to go home today. pt has tolerated change in medication and wants to go home. when asked about speaking with someone regarding her concerns/complaint, she stated "it won't matter anyway, they won't do anything about it, the nurse will still be here". after listening to to her concerns, i let pt know if she changed her mind to let me know. pt verbalizes understanding of discharge paperwork and appropriate follow up. PIV removed without complications
== END 2019-11-28 15:22 | disposition home or self-care (01) | DRG 812 ==
LOC: ER 23:30 → EROBS 11-24 01:23 → 4S 11-24 01:23
PROVIDERS: Emergency Medicine; Internal Medicine Hematology & Oncology; Nurse Practitioner; ADMIT Internal Medicine
DX: D57.00 Hb-SS disease with crisis, unspecified (principal); F32.9 Major depressive disorder, single episode, unspecified; E86.0 Dehydration; D72.829 Elevated white blood cell count, unspecified; F41.9 Anxiety disorder, unspecified; Z79.899 Other long term (current) drug therapy; Z88.2 Allergy status to sulfonamides; Z88.8 Allergy status to other drugs, medicaments and biological substances; Z91.040 Latex allergy status; Z90.710 Acquired absence of both cervix and uterus
CPT/HCPCS: 10102

== ENCOUNTER 2019-12-09 12:35 | Emergency (ER) | payer OTHER ==
[~2019-12-09] VITALS: Ht 170.2 cm; Wt 74.8 kg
[2019-12-09 17:04] LABS: CALCIUM 9.1 mg/dL (8.5-10.1); CREATININE 0.6 mg/dL (0.6-1.0); POTASSIUM 4.2 mmol/L (3.5-5.1)
[2019-12-09 17:08] LABS: ABSOLUTE NEUTROPHILS 7.6 thou/uL (1.4-8.2); ABSOLUTE RETIC COUNT 0.1526 10^6/uL; BASOPHILS 1.6 % (0.0-2.0); EOSINOPHILS 1.9 % (0.0-3.0); HEMATOCRIT 26.7 % (37.0-47.0); LYMPHOCYTES 34.2 % (24.0-44.0); MCH 34.2 pg (26.0-34.0); MCHC 33.8 g/dL (28.0-37.0); MCV 101.1 fL (80.0-100.0); MONOCYTES 9.2 % (1.0-8.0); OBSERVED RETIC COUNT 5.79 % (0.6-2.6); PLATELET COUNT 868 thou/uL (150-400); POLYS 53.1 % (36.0-66.0); RBC 2.64 mil/uL (4.20-5.00); RDW 18.7 % (10.5-14.5); WBC 14.3 thou/uL (4.0-11.0)
[2019-12-09 17:11] LABS: ALBUMIN 3.6 g/dL (3.4-5.0); TOTAL BILIRUBIN 0.6 mg/dL (<0.1-1.0); TOTAL PROTEIN 7.3 g/dL (6.4-8.2)
[2019-12-09 17:24] VITALS: BP 130/83
[2019-12-09 17:25] LABS: TARGET CELLS 2+
[2019-12-09 17:26] LABS: POLYCHROMASIA 1+
[2019-12-09 17:28] LABS: ANISOCYTOSIS 2+; MACROCYTES 1+; PLATELET ESTIMATE MARKEDLY INCREASED
== END 2019-12-09 17:24 | disposition home or self-care (01) ==
LOC: ER 12:35
PROVIDERS: Emergency Medicine
DX: D57.00 Hb-SS disease with crisis, unspecified (principal); Z88.2 Allergy status to sulfonamides; Z91.040 Latex allergy status